=== PATIENT | male | born 1985 | race Two or more races ===

== ENCOUNTER 2019-12-15 16:39 | Emergency (ER) | payer SELFPAY ==
[~2019-12-15] VITALS: Ht 193 cm; Wt 141.0 kg
[2019-12-15 17:01] VITALS: BP 155/85
== END 2019-12-15 20:42 | disposition left against medical advice (07) ==
LOC: ER 16:39
DX: R07.89 Other chest pain (principal); R06.02 Shortness of breath; Z53.21 Procedure and treatment not carried out due to patient leaving prior to being seen by health care provider